=== PATIENT | male | born 1950 | race Caucasian/White ===

== ENCOUNTER → 2018-04-30 08:58 | Outpatient (CLI) | payer OTHER, SELFPAY ==
--- NOTE | 2018-04-30 | DI.CT.S_ITS ---
PROCEDURE: CT SINUS SCREEN WO CON INDICATIONS: RIGHT NASAL OBSTRUCTION TECHNIQUE: Noncontrast 3.0 mm axial images acquired from the frontal sinuses to the mid-sella, with coronal and sagittal reformats. For radiation dose reduction, the following was used: automated exposure control, adjustment of mA and/or kV according to patient size. COMPARISON: None. FINDINGS: Image quality: Excellent. Maxillary Sinuses: No bony remodeling or destruction. Sinuses are clear. Ethmoid Air Cells: No bony remodeling or destruction. Sinuses are clear. Sphenoid Sinuses: No bony remodeling or destruction. Sinuses are clear. Frontal Sinuses: No bony remodeling or destruction. Sinuses are clear. Ostiomeatal Complexes: Ostiomeatal complexes are patent. No Adam cells. Miscellaneous: Visualized intra-orbital contents are normal. No janee bullosa or paradoxical turbinate curvature. There is moderate leftward nasal septal deviation. IMPRESSION: No significant active paranasal sinus disease is seen. Moderate leftward nasal septal deviation. Dictated by: Aftab Fitch M.D. on 04/30/2018 at 8:48 Approved by: Aftab Fitch M.D. on 04/30/2018 at 8:49
== END ==
PROVIDERS: PCP Nurse Practitioner; Visit Provider Otolaryngology
DX: J32.8 Other chronic sinusitis (principal)
CPT/HCPCS: 70486; Q9967

== ENCOUNTER → 2020-03-30 11:56 | Outpatient (CLI) | payer OTHER, SELFPAY ==
[2020-03-30 13:24] LABS: Add Manual Diff / Slide Review NO; Basophils Absolute Auto 0 /uL (0-100); Basophils Percent Auto 0.5 % (0-2); Eosinophils Absolute Auto 0 /uL (0-450); Eosinophils Percent Auto 0.4 % (2-4); Hematocrit 40.2 % (41-53); Lymphocytes Absolute Auto 1100 /uL (1100-4500); Lymphocytes Percent Auto 27.1 % (25-40); Mean Corpuscular HGB Conc 34.8 % (30-36); Mean Corpuscular Hemoglobin 33.5 PG (26-34); Mean Corpuscular Volume 96.3 fL (80-100); Monocytes Absolute Auto 400 /uL (0-900); Monocytes Percent Auto 9.6 % (3-14); Neutrophils Absolute Auto 2500 /uL (1500-7000); Neutrophils Percent Auto 62.4 % (50-75); Platelet Count 152 X10^3/uL (150-400); Red Blood Cell Count 4.17 X10^6/uL (4.5-5.9); Red Cell Distribution Width 12.8 % (11.6-14.8)
[2020-03-30 13:51] LABS: Alanine Aminotransferase 40 IU/L (<50); Albumin 4.8 g/dL (3.5-5.0); Albumin Globulin Ratio 1.5 (1.0-2.8); Alkaline Phosphatase 48 U/L (38-126); Aspartate Aminotransferase 47 IU/L (17-59); BUN Creatinine Ratio 12.7 (6-22); Bilirubin Total 1.7 mg/dL (0.2-1.3); Blood Urea Nitrogen 10 mg/dL (9-20); Calcium 9.8 mg/dL (8.4-10.2); Carbon Dioxide 29 mmol/L (22-32); Chloride 89 mmol/L (98-107); Estimated Glomerular Filt Rate > 60.0 mL/min (>60); Globulin 3.2 g/dL (1.7-4.1); Glucose 93 mg/dL (80-110); HEMOLYSIS < 15 (0-50); Potassium 4.3 mmol/L (3.4-5.1); Sodium 127 mmol/L (137-145); Uric Acid 2.6 mg/dL (3.5-8.5)
[2020-03-30 13:54] LABS: Erythrocyte Sedimentation Rate 4 MM/HR (0-15)
[2020-03-30 13:55] LABS: High Sensitivity CRP - Cardiac 0.6 mg/L (1.0-3.0)
== END ==
PROVIDERS: PCP Family Medicine; Referring Provider Ophthalmology; Visit Provider Ophthalmology
DX: H53.122 Transient visual loss, left eye (principal)
CPT/HCPCS: 36415; 80053; 84550; 85025; 85651; 86140

== ENCOUNTER 2021-06-28 12:28 | Emergency (ER) | payer MEDICARE, SELFPAY ==
[2021-06-28 12:40] VITALS: BP 159/78; PULSE 53; RESP 16; TEMP 36.6; O2SAT 97; BMI 27.4
--- NOTE | 2021-06-28 12:46 | DI.RAD.S_ITS ---
PROCEDURE: XR CHEST 2V INDICATIONS: shortness of breath TECHNIQUE: 2 views of the chest were acquired. COMPARISON: [facility], CHEST 2 VIEW, 01/25/2017, 16:11. [facility] Put[facility], CHEST 2 VIEW, 12/30/2015, 12:08. FINDINGS: Surgical changes and devices: None. Lungs and pleura: Lungs are clear. No pleural effusions or pneumothorax. Mediastinum: Mediastinal contours are not significantly changed. Asymmetric elevation of the left hemidiaphragm. Heart size is within normal limits. Bones and chest wall: No suspicious bony abnormalities. Soft tissues appear unremarkable. IMPRESSION: Suspect pulmonary vasculature engorgement. Dictated by: Kiel Payne M.D. on 06/28/2021 at 13:34 Approved by: Kiel Payne M.D. on 06/28/2021 at 13:35
--- NOTE | 2021-06-28 13:17 | ED.GENADULT ---
HPI - General Adult General Chief complaint: Shortness of Breath/Dyspnea Stated complaint: Sent by [facility] for respitory issues Time Seen by Provider: 06/28/21 12:57 Source: patient Mode of arrival: Ambulatory Limitations: no limitations History of Present Illness HPI narrative: Patient is a 70-year-old male. History of high blood pressure. Takes medications for this. No prior lung history. Does not see a ophthalmic surgeon. Here for evaluation of 2-3 days of shortness of breath especially dyspnea on exertion. He states that he occasionally feels like his heart is beating fast otherwise no chest discomfort. Did have subjective fevers last evening. No cough. No recent travel. No lower extremity swelling. Saw his primary doctor who advised that he come to the emergency department for further evaluation. Related Data Home Medications Medication Instructions Recorded Confirmed OMEGA-3 FATTY ACIDS (FISH OIL) 500 mg PO Q DAY #0 06/15/16 11/05/18 amlodipine 5 mg tablet 5 mg PO BID tab 11/05/18 11/05/18 colchicine 0.6 mg tablet 1.2 mg PO DAILY 11/05/18 11/05/18 irbesartan 150 mg tablet 150 mg PO DAILY 11/05/18 11/05/18 mometasone 50 mcg/actuation nasal 2 spray NASAL DAILY 11/05/18 11/05/18 spray (Nasonex) potassium 99 mg tablet 99 mg PO DAILY 11/05/18 11/05/18 Previous Rx's Medication Instructions Recorded albuterol sulfate 90 mcg/actuation 0.09 mg IH Q4HP PRN #1 inh 09/25/16 aerosol inhaler (Proventil HFA) allopurinol 300 mg tablet 300 mg PO QDAY #90 tab 01/31/17 clonazepam 1 mg tablet 1 mg PO HS #28 tab 02/23/17 hydrochlorothiazide 25 mg tablet 25 mg PO QDAY #90 tab 02/23/17 hydrocodone 5 mg-acetaminophen 325 1 tab PO BID PRN #28 tab 03/26/17 mg tablet ([place]) furosemide 20 mg tablet (Lasix) 20 mg PO DAILY 7 Days #7 tab 06/28/21 Allergies Allergy/AdvReac Type Severity Reaction Status Date / Time atorvastatin [From LIPITOR] AdvReac Intermediate MUSCLE Verified 06/28/21 15:31 CRAMPS AND PAIN Review of Systems Constitutional Constitutional: Reports as per HPI, Reports fever(s) and Denies headache(s) ENT Ears, Nose, Mouth, and Throat: Reports system reviewed and no additional complaints, except as documented and Denies headache(s) Cardiovascular Cardiovascular: Reports as per HPI, Reports system reviewed and no additional complaints, except as documented, Reports dyspnea and Reports dyspnea on exertion Respiratory Respiratory: Reports as per HPI, Reports system reviewed and no additional complaints, except as documented, Denies chest congestion, Denies cough, Denies pain with cough, Reports dyspnea and Reports dyspnea on exertion Gastrointestinal Gastrointestinal: Reports system reviewed and no additional complaints, except as documented, Denies abdominal pain, Denies nausea and Denies vomiting Genitourinary Genitourinary: Denies dysuria Musculoskeletal Musculoskeletal: Reports system reviewed and no additional complaints, except as documented Integumentary/Breasts Skin/Breast: Reports system reviewed and no additional complaints, except as documented Neurologic Neurologic: Reports system reviewed and no additional complaints, except as documented and Denies headache(s) Psychiatric Psychiatric: Reports system reviewed and no additional complaints, except as documented Hematologic/Lymphatic On Anticoagulants: No Allergic/Immunologic Allergic/Immunologic: Reports system reviewed and no additional complaints, except as documented Patient History Medical History (Updated 06/28/21 @ 15:20 by Jarvis Thomson DO) Obstructive sleep apnea of adult Surgical History Status post hernia repair Family History Brother Age: 62 Hypertension Brother Age: 58 Heart disease Brother Age: 60 Hypertension Father Heart disease Grandfather Heart disease Mother Cancer Hypertension Grandfather Heart disease Sister Age: 54 Hypertension High cholesterol Sister Age: 56 High cholesterol Sister Age: 56 High cholesterol Mental health problem Sister Age: 67 Mental health problem Social History Smoking Status: Former smoker Smoking Status: Former smoker alcohol intake frequency: holidays/special occasions only Substance Use Type: does not use Exam Initial Vital Signs Initial Vital Signs: Vital Signs Temperature 97.9 F 06/28/21 12:40 Pulse Rate 53 L 06/28/21 12:40 Respiratory Rate 16 06/28/21 12:40 Blood Pressure 159/78 H 06/28/21 12:40 Pulse Oximetry 97 06/28/21 12:40 Const General: cooperative, healthy appearing, comfortable, well developed, well groomed and No acute distress Limitations: mental status not altered HENHI Head: normal to inspection and normocephalic Eyes General: appearance normal, both eyes and all related structures Resp Effort & Inspection: not labored and tachypneic Auscultation: clear to auscultation bilaterally Cardio Rate: regular rate Rhythm: regular rhythm Other: Bigeminy pattern GI Inspection: non-distended Palpation: soft Back/Spine/Pelvis Back: normal to inspection and back tenderness Skin Lesions: no lesions Rashes: no rashes Neuro General: patient alert, patient awake, patient oriented x3 and moves all extremities Extrem General: normal to inspection and capillary refill normal Psych Appearance: grossly normal and well kempt Course Orders Ordered: ED Orders 06/28/21 12:46 XR chest 2V Stat EKG-12 Lead Stat Measure peak expiratory flow ONCE RT Consult Eval and Treat Now 06/28/21 13:14 Complete Blood Count AUTO DIFF Stat Comprehensive Metabolic Panel Stat Lactate (Lactic Acid) Stat Magnesium Stat NT-proBNP (BNP-Adult 18+) Stat Troponin & CK Cardiac Panel Stat 06/28/21 13:29 COVID19 -Nasal swab/Pre-Proc Stat 06/28/21 13:55 CT angio chest PE protocol Stat Discontinued Medications Furosemide (Furosemide 100 Mg/10 Ml Vial) 60 mg IV NOW ONE Stop: 06/28/21 15:19 Last Admin: 06/28/21 15:51 Dose: 60 mg Documented by: LUIS Vital Signs Vital signs: Vital Signs - 8 hr 06/28/21 12:40 Temperature 97.9 F Pulse Rate 53 L Respiratory Rate 16 Blood Pressure 159/78 H Pulse Oximetry 97 Medical Decision Making Lab Data Lab results reviewed: Yes I reviewed the patient's lab results. Result diagrams: 06/28/21 13:14 06/28/21 13:14 Labs: Lab Results 06/28/21 06/28/21 06/28/21 Range/Units 13:14 13:14 13:14 WBC 12.6 H (4.5-11.0) X10^3/uL RBC 3.48 L (4.5-5.9) X10^6/uL Hgb 11.6 L (13.5-17.5) g/dL Hct 32.5 L (41-53) % MCV 93.3 (80-100) fL MCH 33.3 (26-34) PG MCHC 35.7 (30-36) % RDW 12.6 (11.6-14.8) % Plt Count 193 (150-400) X10^3/uL Neut % (Auto) 89.4 H (50-75) % Lymph % (Auto) 3.8 L (25-40) % Cowley % (Auto) 6.5 (3-14) % Eos % (Auto) 0.0 L (2-4) % Baso % (Auto) 0.3 (0-2) % Neut # (Auto) 41890 H (3711-6431) /uL Lymph # (Auto) 500 L (8446-1639) /uL Cowley # (Auto) 800 (0-900) /uL Eos # (Auto) 0 (0-450) /uL Baso # (Auto) 0 (0-100) /uL Sodium 123 L (137-145) mmol/L Potassium 3.9 (3.4-5.1) mmol/L Chloride 89 L (98-107) mmol/L Carbon Dioxide 25 (22-32) mmol/L BUN 12 (9-20) mg/dL Creatinine 0.98 (0.66-1.25) mg/dL Estimated GFR > 60.0 (>60) mL/min BUN/Creatinine Ratio 12.2 (6-22) Glucose 124 H (80-110) mg/dL Lactate 1.1 (0.7-2.1) mmol/L Calcium 9.3 (8.4-10.2) mg/dL Magnesium (1.6-2.3) mg/dL Total Bilirubin 2.3 H (0.2-1.3) mg/dL AST 39 (17-59) IU/L ALT 21 (<50) IU/L Alkaline Phosphatase 48 (38-126) U/L Total Creatine Kinase (55-170) U/L CK-MB (CK-2) (<2.37) ng/mL CK-MB (CK-2) Rel Index (1.5-5.0) % Troponin I (0.01-0.034) ng/mL NT-Pro-B Natriuret Pep 1130 H (<125) pg/mL Total Protein 7.6 (6.3-8.2) g/dL Albumin 4.3 (3.5-5.0) g/dL Globulin 3.3 (1.7-4.1) g/dL Albumin/Globulin Ratio 1.3 (1.0-2.8) SARS-CoV-2 (PCR) (Negative) 06/28/21 06/28/21 06/28/21 Range/Units 13:14 13:14 13:29 WBC (4.5-11.0) X10^3/uL RBC (4.5-5.9) X10^6/uL Hgb (13.5-17.5) g/dL Hct (41-53) % MCV (80-100) fL MCH (26-34) PG MCHC (30-36) % RDW (11.6-14.8) % Plt Count (150-400) X10^3/uL Neut % (Auto) (50-75) % Lymph % (Auto) (25-40) % Cowley % (Auto) (3-14) % Eos % (Auto) (2-4) % Baso % (Auto) (0-2) % Neut # (Auto) (7023-3585) /uL Lymph # (Auto) (7823-0113) /uL Cowley # (Auto) (0-900) /uL Eos # (Auto) (0-450) /uL Baso # (Auto) (0-100) /uL Sodium (137-145) mmol/L Potassium (3.4-5.1) mmol/L Chloride (98-107) mmol/L Carbon Dioxide (22-32) mmol/L BUN (9-20) mg/dL Creatinine (0.66-1.25) mg/dL Estimated GFR (>60) mL/min BUN/Creatinine Ratio (6-22) Glucose (80-110) mg/dL Lactate (0.7-2.1) mmol/L Calcium (8.4-10.2) mg/dL Magnesium 1.8 (1.6-2.3) mg/dL Total Bilirubin (0.2-1.3) mg/dL AST (17-59) IU/L ALT (<50) IU/L Alkaline Phosphatase (38-126) U/L Total Creatine Kinase 236 H (55-170) U/L CK-MB (CK-2) 2.75 H (<2.37) ng/mL CK-MB (CK-2) Rel Index 1.2 L (1.5-5.0) % Troponin I 0.012 (0.01-0.034) ng/mL NT-Pro-B Natriuret Pep (<125) pg/mL Total Protein (6.3-8.2) g/dL Albumin (3.5-5.0) g/dL Globulin (1.7-4.1) g/dL Albumin/Globulin Ratio (1.0-2.8) SARS-CoV-2 (PCR) Negative (Negative) 06/28/21 Range/Units 14:33 WBC (4.5-11.0) X10^3/uL RBC (4.5-5.9) X10^6/uL Hgb (13.5-17.5) g/dL Hct (41-53) % MCV (80-100) fL MCH (26-34) PG MCHC (30-36) % RDW (11.6-14.8) % Plt Count (150-400) X10^3/uL Neut % (Auto) (50-75) % Lymph % (Auto) (25-40) % Cowley % (Auto) (3-14) % Eos % (Auto) (2-4) % Baso % (Auto) (0-2) % Neut # (Auto) (1466-7962) /uL Lymph # (Auto) (0253-9164) /uL Cowley # (Auto) (0-900) /uL Eos # (Auto) (0-450) /uL Baso # (Auto) (0-100) /uL Sodium (137-145) mmol/L Potassium (3.4-5.1) mmol/L Chloride (98-107) mmol/L Carbon Dioxide (22-32) mmol/L BUN (9-20) mg/dL Creatinine (0.66-1.25) mg/dL Estimated GFR (>60) mL/min BUN/Creatinine Ratio (6-22) Glucose (80-110) mg/dL Lactate (0.7-2.1) mmol/L Calcium (8.4-10.2) mg/dL Magnesium (1.6-2.3) mg/dL Total Bilirubin (0.2-1.3) mg/dL AST (17-59) IU/L ALT (<50) IU/L Alkaline Phosphatase (38-126) U/L Total Creatine Kinase (55-170) U/L CK-MB (CK-2) (<2.37) ng/mL CK-MB (CK-2) Rel Index (1.5-5.0) % Troponin I (0.01-0.034) ng/mL NT-Pro-B Natriuret Pep (<125) pg/mL Total Protein (6.3-8.2) g/dL Albumin (3.5-5.0) g/dL Globulin (1.7-4.1) g/dL Albumin/Globulin Ratio (1.0-2.8) SARS-CoV-2 (PCR) Cancelled (Negative) Imaging Data Chest x-ray: Radiologist's Impression: [address] [address] XRay Report Signed Patient: Moose Blanco MR#: [id number] : 1950 Acct:[id number] Age/Sex: 70 / M Date of Service: 06/28/21 Loc: ED Accession Number: [id number] ?? Procedure: XR chest 2V Ordering Provider: Jarvis Thomson D.O. PROCEDURE:? XR CHEST 2V ? INDICATIONS:? shortness of breath ? TECHNIQUE:? 2 views of the chest were acquired.? ? COMPARISON:? [facility] Putnam, CHEST 2 VIEW, 01/25/2017, 16:11.? [facility]IE Putnam, CHEST 2 VIEW, 12/30/2015, 12:08. ? FINDINGS:? ? Surgical changes and devices:? None.? ? Lungs and pleura:? Lungs are clear.? No pleural effusions or pneumothorax.? ? Mediastinum:? Mediastinal contours are not significantly changed.? Asymmetric elevation of the left hemidiaphragm.? Heart size is within normal limits.? ? Bones and chest wall:? No suspicious bony abnormalities.? Soft tissues appear unremarkable.? ? IMPRESSION:? Suspect pulmonary vasculature engorgement. ? ? Dictated by: Kiel Payne M.D. on 06/28/2021 at 13:34 ? ? Approved by: Kiel Payne M.D. on 06/28/2021 at 13:35?? CT scan - chest: Radiologist's Impression: [address] [address] [address] Scan Report Signed Patient: Moose Blanco MR#: [id number] : 1950 Acct:[id number] Age/Sex: 70 / M Date of Service: 06/28/21 Loc: ED Accession Number: [id number] ?? Procedure: CT angio chest PE protocol Ordering Provider: Jarvis Thomson D.O. PROCEDURE:? CT ANGIO CHEST PE PROTOCOL ? INDICATIONS:? Chest pain, shortness of breath, tachycardia ? TECHNIQUE:? After the administration of intravenous contrast, 2 mm thick sections acquired from the pulmonary apices to the posterior costophrenic angles.? 3-dimensional maximum intensity projection (MIP) coronal and sagittal reformats were then acquired through the thorax.? For radiation dose reduction, the following was used:? automated exposure control, adjustment of mA and/or kV according to patient size.? ? COMPARISON:? [facility], CR, CHEST 2 VIEW, 01/25/2017, 16:11.? [facility], CR, XR CHEST 2V, 06/28/2021, 12:50. ? FINDINGS:? Image quality:? Good.? ? Pulmonary arteries:? Pulmonary arteries are normal in size, and demonstrate no intraluminal filling defects to suggest pulmonary embolism.? ? Lungs and pleura:? Bilateral patchy ground-glass airspace opacity, moderate severity.? Left lung base pulmonary nodule measuring 0.5 cm, (5/190).? No pleural effusions or pneumothorax.? Central airways are clear.? ? Mediastinum:? Heart size is normal, without pericardial effusion.? Coronary artery calcifications.? Shotty appearing mediastinal lymph nodes.? Suspect reactive etiology.? Thoracic aorta is normal in caliber and enhancement.? Esophagus is normal in caliber, without hiatal hernia.? ? Bones and chest wall:? No suspicious bony lesions.? Mild degenerative change in the thoracic spine.? Ribs and thoracic spine appear intact throughout.? Thyroid gland is unremarkable.? No axillary or supraclavicular adenopathy.? ? Abdomen:? Visualized upper abdominal solid organs appear normal in the early arterial phase of enhancement.? ? IMPRESSION:? 1. No pulmonary embolism. ? 2. Bilateral patchy ground-glass airspace opacity.? Suspect infectious/inflammatory etiology.? COVID-19 pneumonia could have this appearance. ? 3. Left lung base pulmonary nodule measuring 0.5 cm. ? 4. Shotty mediastinal lymph nodes.? Favor reactive etiology. ? ? ? Dictated by: Kiel Payne M.D. on 06/28/2021 at 14:01 ? ? Approved by: Kiel Payne M.D. on 06/28/2021 at 14:09?? ECG Data Attestation: I personally reviewed and interpreted this ECG as follows: Prior ECG tracings: not available for review Interpretation: Sinus rhythm Ventricular rate 106 Bigeminy pattern with frequent PVCs Normal QRS Normal QTC Nonspecific ST T wave changes MDM Narrative Medical decision making narrative: Patient is having frequent episodes of bigeminy. His troponin is negative. Other than the bigeminy his EKG is nonspecific changes. Patient does have a slight elevation in BNP. Has a leukocytosis but I have low suspicion for pneumonia. His COVID is negative. CT scan more consistent with fluid overload. Plan will be is to start the patient on Lasix. He will contact his primary doctor to discuss further workup to include an echocardiogram and potentially pulmonary function tests or other specialist referral. Patient was given return precautions and follow-up instructions. He expressed understanding and agreement. Discharge Plan Departure Patient Disposition: Home Clinical Impression: Shortness of Breath Instructions: DI for Shortness of Breath Activity Restrictions/Additional Instructions: I do recommend you continue to take all of your medications as directed. I feel that we should start you on a medication to help you urinate. This will try to mobilize some of the fluid that may be causing your symptoms. If this does not help your symptoms you do need further workup to include potential pulmonary function test. This can be ordered by your primary doctor. Return to the emergency department for any new or worsening symptoms. Prescriptions: New furosemide [Lasix] 20 mg tablet 20 mg PO DAILY 7 Days Qty: 7 0RF No Action OMEGA-3 FATTY ACIDS (FISH OIL) 500 mg PO Q DAY Qty: 0 0RF albuterol sulfate [Proventil HFA] 90 MCG/PUFF HFA aerosol inhaler 0.09 mg IH Q4HP PRNQty: 1 1RF allopurinol 300 MG tablet 300 mg PO QDAY Qty: 90 0RF clonazepam 1 MG tablet 1 mg PO HS Qty: 28 0RF hydrochlorothiazide 25 MG tablet 25 mg PO QDAY Qty: 90 1RF hydrocodone-acetaminophen [[place]] 5 MG/325 MG tablet 1 tab PO BID PRNQty: 28 0RF amlodipine 5 mg tablet 5 mg PO BID 0RF colchicine 0.6 mg tablet 1.2 mg PO DAILY 0RF irbesartan 150 mg tablet 150 mg PO DAILY 0RF mometasone [Nasonex] 50 mcg/actuation spray,non-aerosol 2 spray NASAL DAILY 0RF potassium 99 mg tablet 99 mg PO DAILY 0RF Referrals: Kalia Hunt MD [Primary Care Provider] -
[2021-06-28 13:27] LABS: Add Manual Diff / Slide Review NO; Basophils Absolute Auto 0 /uL (0-100); Basophils Percent Auto 0.3 % (0-2); Eosinophils Absolute Auto 0 /uL (0-450); Hematocrit 32.5 % (41-53); Hemoglobin 11.6 g/dL (13.5-17.5); Lymphocytes Absolute Auto 500 /uL (1100-4500); Lymphocytes Percent Auto 3.8 % (25-40); Mean Corpuscular HGB Conc 35.7 % (30-36); Mean Corpuscular Hemoglobin 33.3 PG (26-34); Mean Corpuscular Volume 93.3 fL (80-100); Monocytes Absolute Auto 800 /uL (0-900); Monocytes Percent Auto 6.5 % (3-14); Neutrophils Absolute Auto 11200 /uL (1500-7000); Neutrophils Percent Auto 89.4 % (50-75); Platelet Count 193 X10^3/uL (150-400); Red Blood Cell Count 3.48 X10^6/uL (4.5-5.9); Red Cell Distribution Width 12.6 % (11.6-14.8); White Blood Cell Count 12.6 X10^3/uL (4.5-11.0)
[2021-06-28 13:38] LABS: Alanine Aminotransferase 21 IU/L (<50); Albumin 4.3 g/dL (3.5-5.0); Albumin Globulin Ratio 1.3 (1.0-2.8); Alkaline Phosphatase 48 U/L (38-126); Aspartate Aminotransferase 39 IU/L (17-59); BUN Creatinine Ratio 12.2 (6-22); Bilirubin Total 2.3 mg/dL (0.2-1.3); Blood Urea Nitrogen 12 mg/dL (9-20); Calcium 9.3 mg/dL (8.4-10.2); Carbon Dioxide 25 mmol/L (22-32); Chloride 89 mmol/L (98-107); Estimated Glomerular Filt Rate > 60.0 mL/min (>60); Globulin 3.3 g/dL (1.7-4.1); Glucose 124 mg/dL (80-110); HEMOLYSIS 28 (0-50); Potassium 3.9 mmol/L (3.4-5.1); Sodium 123 mmol/L (137-145); Total Protein 7.6 g/dL (6.3-8.2)
[2021-06-28 13:39] LABS: Lactate (Lactic Acid) 1.1 mmol/L (0.7-2.1); Magnesium 1.8 mg/dL (1.6-2.3)
[2021-06-28 13:42] LABS: COVID19 -Nasal RAPID Negative (Negative)
[2021-06-28 13:47] LABS: NT-proBNP (BNP-Adult 18+) 1130 pg/mL (<125)
--- NOTE | 2021-06-28 13:55 | DI.CT.S_ITS ---
PROCEDURE: CT ANGIO CHEST PE PROTOCOL INDICATIONS: Chest pain, shortness of breath, tachycardia TECHNIQUE: After the administration of intravenous contrast, 2 mm thick sections acquired from the pulmonary apices to the posterior costophrenic angles. 3-dimensional maximum intensity projection (MIP) coronal and sagittal reformats were then acquired through the thorax. For radiation dose reduction, the following was used: automated exposure control, adjustment of mA and/or kV according to patient size. COMPARISON: [facility], CR, CHEST 2 VIEW, 01/25/2017, 16:11. [facility], CR, XR CHEST 2V, 06/28/2021, 12:50. FINDINGS: Image quality: Good. Pulmonary arteries: Pulmonary arteries are normal in size, and demonstrate no intraluminal filling defects to suggest pulmonary embolism. Lungs and pleura: Bilateral patchy ground-glass airspace opacity, moderate severity. Left lung base pulmonary nodule measuring 0.5 cm, (5/190). No pleural effusions or pneumothorax. Central airways are clear. Mediastinum: Heart size is normal, without pericardial effusion. Coronary artery calcifications. Shotty appearing mediastinal lymph nodes. Suspect reactive etiology. Thoracic aorta is normal in caliber and enhancement. Esophagus is normal in caliber, without hiatal hernia. Bones and chest wall: No suspicious bony lesions. Mild degenerative change in the thoracic spine. Ribs and thoracic spine appear intact throughout. Thyroid gland is unremarkable. No axillary or supraclavicular adenopathy. Abdomen: Visualized upper abdominal solid organs appear normal in the early arterial phase of enhancement. IMPRESSION: 1. No pulmonary embolism. 2. Bilateral patchy ground-glass airspace opacity. Suspect infectious/inflammatory etiology. COVID-19 pneumonia could have this appearance. 3. Left lung base pulmonary nodule measuring 0.5 cm. 4. Shotty mediastinal lymph nodes. Favor reactive etiology. Dictated by: Kiel Payne M.D. on 06/28/2021 at 14:01 Approved by: Kiel Payne M.D. on 06/28/2021 at 14:09
[2021-06-28 15:48] LABS: Creatine Kinase 236 U/L (55-170)
[2021-06-28] MEDS: FUROSEMIDE 100 MG/10 ML VIAL 60 MG IV (15:51)
[2021-06-28 16:01] LABS: Troponin I 0.012 ng/mL (0.01-0.034)
[2021-06-28 16:04] LABS: CKMB % Relative Index 1.2 % (1.5-5.0); Creatine Kinase MB 2.75 ng/mL (<2.37)
== END 2021-06-28 15:50 | disposition home or self-care (01) ==
PROVIDERS: Emergency Provider Emergency Medicine; PCP Family Medicine
DX: R06.02 Shortness of breath (principal); Z87.891 Personal history of nicotine dependence; Z20.822 Contact with and (suspected) exposure to COVID-19
CPT/HCPCS: 36415; 71046; 71275; 80053; 82550; 82553; 83605; 83735; 83880; 84484; 85025; 87635; 93005; 93010; 99284; C9803; J1940

== ENCOUNTER → 2021-07-22 08:19 | Outpatient (CLI) | payer MEDICARE, SELFPAY ==
--- NOTE | 2021-07-22 08:20 | DI.ECHO.S_ITS ---
[facility] +---------+ : : [address] [place] : : : : [id number] : : : : Phone: [phone] Echocardiogram Report + + :Name: АННА WILSON Study Date: 07/22/2021 Height: 74 in : :[facility] ReadingLocation: Weight: 214 lb : : Gender: Male BSA: 2.2 m2 : :: 1950 Age: 70 yrs BP: 134/72 mmHg: :Reason For Study: Heart failure : :Ordering Physician: Dr. Motta : :[facility] Performed By: Chirag Longoria : :Referring: ANA M RUFF : + + Interpretation Summary Significant beat - to - beat variation of EF Left ventricular ejection fraction is estimated to be 55 +/- 5%. No obvious wall motion abnormality. Dyssynchronous contraction is noted primarily I feel because of frequent PVCs The aortic valve is mildly calcified. There is mildly reduced leaflet mobility. There is mild tricuspid regurgitation. The right ventricular systolic pressure is estimated to be at least 24 mmHg based on an estimated right atrial pressure of 3 mm Hg. Procedure: A two-dimensional transthoracic echocardiogram with color flow and Doppler was performed. The study quality was technically adequate. There is no prior echocardiogram noted for this patient. The heart rate ranged between 99 - 106 bpm during the study. Left Ventricle: The left ventricle is normal in size and wall thickness. There is borderline proximal septal thickening noted. Significant beat - to - beat variation of EF. Left ventricular ejection fraction is estimated to be 55 +/- 5%. No obvious wall motion abnormality. Dyssynchronous contraction is noted primarily I feel because of frequent PVCs. Diastolic function could not be accurately assessed due to unobtainable data. Right Ventricle: The right ventricle is normal in size and function. Atria: The left atrium is moderately dilated. The right atrium is borderline dilated. There is no Doppler evidence for an interatrial shunt. The atrial septum is aneurysmal. Mitral Valve: There is mild mitral annular calcification. There is trace mitral regurgitation. Aortic Valve: The aortic valve is trileaflet. The aortic valve is mildly calcified. There is mildly reduced leaflet mobility. The peak aortic velocity is 2.3 m/sec. The aortic valve mean gradient is 13.7 mmHg. There is trace aortic regurgitation. Tricuspid Valve: The tricuspid valve is normal. There is mild tricuspid regurgitation. The right ventricular systolic pressure is estimated to be at least 24 mmHg based on an estimated right atrial pressure of 3 mm Hg. Pulmonic Valve: The pulmonic valve leaflets are thin and pliable; valve motion is normal. There is trace pulmonic regurgitation. Great Vessels: The aortic root is borderline dilated. The ascending aorta is mildly enlarged. The aortic arch is normal in size. The IVC is of normal diameter and collapses greater than 50% with a sniff. This suggests a low right atrial pressure of 3 mm Hg. Pericardium/ Pleura There is no pericardial effusion. There is an anterior echo-free space consistent with a fat pad. There is no pleural effusion. MMode/2D Measurements & Calculations LVIDd: 4.3 cm LVOT diam: 2.5 cm LVIDs: 2.9 cm Ao root diam: 3.9 cm FS: 32.9 % asc Aorta Diam: 4.1 cm IVSd: 1.2 cm Ao Arch Diam (Prox Trans): 2.7 cm LVPWd: 1.1 cm LV murillo. diameter/BSA (cm/m^2): 1.9 LV sys. diameter/BSA (cm/m^2): 1.3 LA A2 area: 26.4 cm2 RA long axis: 5.9 cm LA A4 area: 24.4 cm2 RA area: 18.6 cm2 LA length (vol): 5.8 cm RA vol: 49.6 ml LA vol: 94.0 ml RA : 22.2 ml/m2 LA vol index: 42.0 ml/m2 IVC diam: 2.2 cm TAPSE: 1.9 cm Doppler Measurements & Calculations Ao V2 max: 229.5 cm/sec LVOT Max Guillermo: 137.8 cm/sec Ao V2 mean: 178.9 cm/sec LV V1 max P.6 mmHg Ao max P.1 mmHg LV V1 VTI: 25.6 cm Ao mean P.7 mmHg JAIRO(I,D): 2.9 cm2 Ao V2 VTI: 45.4 cm JAIRO(V,D): 3.1 cm2 sev ratio: 0.56 JAIRO indexed to BSA (cm^2/m^2): 1.3 MV E max guillermo: 68.6 cm/sec TR max guillermo: 227.3 cm/sec MV A max guillermo: 70.4 cm/sec TR max P.8 mmHg MV E/A: 0.98 PA V2 max: 95.8 cm/sec Med Peak E' Guillermo: 8.6 cm/sec PA V2 mean: 78.6 cm/sec E/E' med: 8.0 PA mean P.6 mmHg Lat Peak E' Guillermo: 16.0 cm/sec PA pr(Accel): 55.0 mmHg E/E' lat: 4.3 E/e' average: 6.1 MV dec time: 0.17 sec SV(LVOT): 130.2 ml Reading Physician:11:14 AM
== END ==
PROVIDERS: PCP Family Medicine; Referring Provider Family Medicine; Visit Provider Family Medicine
DX: I07.1 Rheumatic tricuspid insufficiency (principal); I50.9 Heart failure, unspecified
CPT/HCPCS: 93306

== ENCOUNTER 2021-07-22 08:54 | Emergency (ER) | payer MEDICARE, SELFPAY ==
[2021-07-22] VITALS (19 sets, daily range): BP systolic 122–162; BP diastolic 65–85; PULSE 44–144; RESP 17–36; TEMP 36.2; O2SAT 94–97; BMI 28.5
--- NOTE | 2021-07-22 09:25 | DI.RAD.S_ITS ---
PROCEDURE: XR CHEST 1V INDICATIONS: CHF TECHNIQUE: One view of the chest was acquired. COMPARISON: [facility], CR, XR CHEST 2V, 06/28/2021, 12:50. FINDINGS: Surgical changes and devices: None. Lungs and pleura: Stable elevation of the left hemidiaphragm is seen with atelectasis or scarring at the left lung base. Lungs are otherwise clear. No pleural effusions or pneumothorax. Mediastinum: Mediastinal contours appear normal. Heart size is normal. Bones and chest wall: No suspicious bony lesions. Overlying soft tissues appear unremarkable. IMPRESSION: No acute cardiopulmonary abnormality. Dictated by: Jose Clifford M.D. on 07/22/2021 at 10:07 Approved by: Jose Clifford M.D. on 07/22/2021 at 10:08
[2021-07-22 09:38] LABS: Add Manual Diff / Slide Review NO; Basophils Absolute Auto 0 /uL (0-100); Basophils Percent Auto 0.7 % (0-2); Eosinophils Absolute Auto 100 /uL (0-450); Eosinophils Percent Auto 2.3 % (2-4); Hematocrit 34.4 % (41-53); Hemoglobin 12.4 g/dL (13.5-17.5); Lymphocytes Absolute Auto 1100 /uL (1100-4500); Lymphocytes Percent Auto 24.2 % (25-40); Mean Corpuscular HGB Conc 36.1 % (30-36); Mean Corpuscular Hemoglobin 33.4 PG (26-34); Mean Corpuscular Volume 92.5 fL (80-100); Monocytes Absolute Auto 500 /uL (0-900); Monocytes Percent Auto 11.9 % (3-14); Neutrophils Absolute Auto 2800 /uL (1500-7000); Neutrophils Percent Auto 60.9 % (50-75); Platelet Count 155 X10^3/uL (150-400); Red Blood Cell Count 3.72 X10^6/uL (4.5-5.9); Red Cell Distribution Width 13.3 % (11.6-14.8); White Blood Cell Count 4.6 X10^3/uL (4.5-11.0)
[2021-07-22 09:45] LABS: Alanine Aminotransferase 18 IU/L (<50); Albumin 3.9 g/dL (3.5-5.0); Albumin Globulin Ratio 1.1 (1.0-2.8); Alkaline Phosphatase 53 U/L (38-126); Aspartate Aminotransferase 31 IU/L (17-59); BUN Creatinine Ratio 13.8 (6-22); Bilirubin Total 1.4 mg/dL (0.2-1.3); Blood Urea Nitrogen 12 mg/dL (9-20); Calcium 9.1 mg/dL (8.4-10.2); Carbon Dioxide 27 mmol/L (22-32); Chloride 99 mmol/L (98-107); Creatine Kinase 189 U/L (55-170); Estimated Glomerular Filt Rate > 60.0 mL/min (>60); Globulin 3.5 g/dL (1.7-4.1); Glucose 109 mg/dL (80-110); HEMOLYSIS < 15 (0-50); Lipase 100 U/L (23-300); Potassium 4.2 mmol/L (3.4-5.1); Sodium 128 mmol/L (137-145); Total Protein 7.4 g/dL (6.3-8.2)
--- NOTE | 2021-07-22 09:48 | ED.SOB ---
HPI - SOB/Dyspnea General Chief Complaint: Shortness of Breath/Dyspnea Stated Complaint: CHF getting worse Time Seen by Provider: 07/22/21 09:15 Source: patient and family Mode of arrival: Wheelchair Limitations: no limitations History of Present Illness HPI Narrative: The patient was evaluated your last month, found to have CHF BNP greater than 1000. He has no prior history of cardiac issues or CHF. He was discharged on HCTZ. He had an echo earlier today, results are not yet known. Yet to see a client services assistant. He continues have notable dyspnea on exertion. He does have dyspnea at rest, nor orthopnea. He does not have chest pain or palpitations with exertion. One of his brothers is with him, adding the history that the patient has 2 brothers with ascending aortic aneurysms. The patient had a chest CTA as part of his evaluation last month, it is noted that the thoracic aorta is normal. in addition to note chest pain, the patient has no back pain. He has no abdominal discomfort. He has no bowel changes, no history of GI bleeding. Related Data Home Medications Medication Instructions Recorded Confirmed OMEGA-3 FATTY ACIDS (FISH OIL) 500 mg PO Q DAY #0 06/15/16 11/05/18 amlodipine 5 mg tablet 5 mg PO BID tab 11/05/18 11/05/18 colchicine 0.6 mg tablet 1.2 mg PO DAILY 11/05/18 11/05/18 irbesartan 150 mg tablet 150 mg PO DAILY 11/05/18 11/05/18 mometasone 50 mcg/actuation nasal 2 spray NASAL DAILY 11/05/18 11/05/18 spray (Nasonex) potassium 99 mg tablet 99 mg PO DAILY 11/05/18 11/05/18 Previous Rx's Medication Instructions Recorded albuterol sulfate 90 mcg/actuation 0.09 mg IH Q4HP PRN #1 inh 09/25/16 aerosol inhaler (Proventil HFA) allopurinol 300 mg tablet 300 mg PO QDAY #90 tab 01/31/17 clonazepam 1 mg tablet 1 mg PO HS #28 tab 02/23/17 hydrochlorothiazide 25 mg tablet 25 mg PO QDAY #90 tab 02/23/17 hydrocodone 5 mg-acetaminophen 325 1 tab PO BID PRN #28 tab 03/26/17 mg tablet (Flat Top) Allergies Allergy/AdvReac Type Severity Reaction Status Date / Time atorvastatin [From LIPITOR] AdvReac Intermediate MUSCLE Verified 06/28/21 15:31 CRAMPS AND PAIN Review of Systems Constitutional Constitutional: Denies body ache(s), Denies chills, Denies fatigue and Denies fever(s) Eyes Eyes: Denies change in vision and Denies irritation ENT Ears, Nose, Mouth, and Throat: Denies vertigo, Denies dizziness and Denies sore throat Cardiovascular Cardiovascular: Denies chest pain, Denies syncope, Denies rapid heart rate, Denies pedal edema and Reports dyspnea Respiratory Respiratory: Reports as per HPI, Denies chest congestion, Reports cough and Reports dyspnea Gastrointestinal Gastrointestinal: Denies melena, Denies hematochezia and Denies change in bowel habits Musculoskeletal Musculoskeletal: Denies arthralgias and Denies back pain Comments: No lower extremity edema. Integumentary/Breasts Skin/Breast: Denies rash Neurologic Neurologic: Denies confusion, Denies vertigo, Denies dizziness and Denies syncope Psychiatric Psychiatric: Denies confusion Endocrine Endocrine: Denies fatigue Hematologic/Lymphatic On Anticoagulants: No Patient History Medical History (Updated 07/22/21 @ 14:09 by Ana M Stein MD) Congestive heart failure Essential hypertension (08/30/15) Obstructive sleep apnea of adult Surgical History Status post hernia repair Family History Brother Age: 62 Hypertension Brother Age: 58 Heart disease Brother Age: 60 Hypertension Father Heart disease Grandfather Heart disease Mother Cancer Hypertension Grandfather Heart disease Sister Age: 54 Hypertension High cholesterol Sister Age: 56 High cholesterol Sister Age: 56 High cholesterol Mental health problem Sister Age: 67 Mental health problem Social History Smoking Status: Former smoker Smoking Status: Former smoker alcohol intake frequency: 0-2 drinks per day Substance Use Type: marijuana Exam Initial Vital Signs Initial Vital Signs: Vital Signs Temperature 97.2 F L 07/22/21 08:55 Pulse Rate 47 L 07/22/21 08:55 Respiratory Rate 20 07/22/21 08:55 Blood Pressure 162/69 H 07/22/21 08:55 Pulse Oximetry 96 07/22/21 08:55 Const General: cooperative, healthy appearing and comfortable [facility] Head: normal to inspection, normocephalic and atraumatic Mouth: oral mucosae normal Throat: posterior oropharynx normal Eyes General: appearance normal, both eyes and all related structures Neck Neck: No JVD Chest Chest: normal inspection of the chest Resp Effort & Inspection: normal respiratory effort Auscultation: rales ( bibasilar) bilaterally at the base Cardio Rate: regular rate Heart Sounds: S1 normal, S2 normal and murmur ( III/ mid systolic. concerning for aortic stenosis.) GI Inspection: normal to inspection Palpation: soft and No tender Auscultation: normal bowel sounds Back/Spine/Pelvis Back: normal to inspection Skin General: no rashes or lesions noted Neuro General: patient alert, patient awake and patient oriented x3 Extrem General: full ROM, no pedal edema and no calf tenderness Psych Appearance: grossly normal Course Course Course Narrative: The patient's echo has been reviewed. Lasix 40 mg IV was given. The patient diuresed 2.5 L. he has been in bigeminy. He is now going in and out of bigeminy/normal sinus rhythm. He feels better. His case was discussed with Dr. Rudolph partner to the patient's client services assistant. The decision is made to not change treatment, simply did expedite cardiology follow-up. Orders Ordered: ED Orders 07/22/21 09:17 BNP [NT-proBNP (BNP-Adult 18+)] Stat Complete Blood Count AUTO DIFF Stat Comprehensive Metabolic Panel Stat D Dimer Stat Lipase Stat Magnesium Stat Troponin & CK Cardiac Panel Stat 07/22/21 09:25 XR chest 1V Stat Discontinued Medications Furosemide (Furosemide 40 Mg/4 Ml Vial) 40 mg IV NOW ONE Stop: 07/22/21 12:23 Last Admin: 07/22/21 12:33 Dose: 40 mg Documented by: EAMON Vital Signs Vital signs: Vital Signs - 8 hr 07/22/21 08:55 07/22/21 09:00 07/22/21 09:04 Temperature 97.2 F L Pulse Rate 47 L 44 L 48 L Respiratory Rate 20 20 Blood Pressure 162/69 H 162/69 H 159/78 H Pulse Oximetry 96 94 96 07/22/21 09:15 07/22/21 09:30 07/22/21 09:31 Temperature Pulse Rate 144 H 90 92 H Respiratory Rate 20 20 Blood Pressure 159/78 H 124/66 Pulse Oximetry 95 94 94 07/22/21 10:00 07/22/21 10:30 07/22/21 11:00 Temperature Pulse Rate 88 90 89 Respiratory Rate 20 20 Blood Pressure 134/68 154/77 H Pulse Oximetry 94 95 96 07/22/21 11:01 Temperature Pulse Rate 91 H Respiratory Rate 20 Blood Pressure 122/65 Pulse Oximetry 95 MDM - SOB/Dyspnea Lab Data Result diagrams: 07/22/21 09:17 07/22/21 09:17 Labs: Lab Results 07/22/21 07/22/21 07/22/21 Range/Units 09:17 09:17 09:17 WBC 4.6 (4.5-11.0) X10^3/uL RBC 3.72 L (4.5-5.9) X10^6/uL Hgb 12.4 L (13.5-17.5) g/dL Hct 34.4 L (41-53) % MCV 92.5 (80-100) fL MCH 33.4 (26-34) PG MCHC 36.1 H (30-36) % RDW 13.3 (11.6-14.8) % Plt Count 155 (150-400) X10^3/uL Neut % (Auto) 60.9 (50-75) % Lymph % (Auto) 24.2 L (25-40) % Dickson % (Auto) 11.9 (3-14) % Eos % (Auto) 2.3 (2-4) % Baso % (Auto) 0.7 (0-2) % Neut # (Auto) 2800 (7168-3315) /uL Lymph # (Auto) 1100 (6785-9704) /uL Dickson # (Auto) 500 (0-900) /uL Eos # (Auto) 100 (0-450) /uL Baso # (Auto) 0 (0-100) /uL D-Dimer 279 H (<230) ng/mL Sodium 128 L (137-145) mmol/L Potassium 4.2 (3.4-5.1) mmol/L Chloride 99 (98-107) mmol/L Carbon Dioxide 27 (22-32) mmol/L BUN 12 (9-20) mg/dL Creatinine 0.87 (0.66-1.25) mg/dL Estimated GFR > 60.0 (>60) mL/min BUN/Creatinine Ratio 13.8 (6-22) Glucose 109 (80-110) mg/dL Calcium 9.1 (8.4-10.2) mg/dL Magnesium (1.6-2.3) mg/dL Total Bilirubin 1.4 H (0.2-1.3) mg/dL AST 31 (17-59) IU/L ALT 18 (<50) IU/L Alkaline Phosphatase 53 (38-126) U/L Total Creatine Kinase 189 H (55-170) U/L CK-MB (CK-2) 4.79 H (<2.37) ng/mL CK-MB (CK-2) Rel Index 2.5 (1.5-5.0) % Troponin I < 0.012 (0.01-0.034) ng/mL NT-Pro-B Natriuret Pep 950 H (<125) pg/mL Total Protein 7.4 (6.3-8.2) g/dL Albumin 3.9 (3.5-5.0) g/dL Globulin 3.5 (1.7-4.1) g/dL Albumin/Globulin Ratio 1.1 (1.0-2.8) Lipase 100 (23-300) U/L 07/22/21 Range/Units 09:17 WBC (4.5-11.0) X10^3/uL RBC (4.5-5.9) X10^6/uL Hgb (13.5-17.5) g/dL Hct (41-53) % MCV (80-100) fL MCH (26-34) PG MCHC (30-36) % RDW (11.6-14.8) % Plt Count (150-400) X10^3/uL Neut % (Auto) (50-75) % Lymph % (Auto) (25-40) % Dickson % (Auto) (3-14) % Eos % (Auto) (2-4) % Baso % (Auto) (0-2) % Neut # (Auto) (4397-1987) /uL Lymph # (Auto) (9477-1525) /uL Dickson # (Auto) (0-900) /uL Eos # (Auto) (0-450) /uL Baso # (Auto) (0-100) /uL D-Dimer (<230) ng/mL Sodium (137-145) mmol/L Potassium (3.4-5.1) mmol/L Chloride (98-107) mmol/L Carbon Dioxide (22-32) mmol/L BUN (9-20) mg/dL Creatinine (0.66-1.25) mg/dL Estimated GFR (>60) mL/min BUN/Creatinine Ratio (6-22) Glucose (80-110) mg/dL Calcium (8.4-10.2) mg/dL Magnesium 1.9 (1.6-2.3) mg/dL Total Bilirubin (0.2-1.3) mg/dL AST (17-59) IU/L ALT (<50) IU/L Alkaline Phosphatase (38-126) U/L Total Creatine Kinase (55-170) U/L CK-MB (CK-2) (<2.37) ng/mL CK-MB (CK-2) Rel Index (1.5-5.0) % Troponin I (0.01-0.034) ng/mL NT-Pro-B Natriuret Pep (<125) pg/mL Total Protein (6.3-8.2) g/dL Albumin (3.5-5.0) g/dL Globulin (1.7-4.1) g/dL Albumin/Globulin Ratio (1.0-2.8) Lipase (23-300) U/L Urine Dip Bedside Urine Glucose Negative Bedside Urine Bilirubin - Negative Bedside Urine Ketone - Negative Urine Specific [place] 1.010 Bedside Urine Occult Blood - Negative Bedside Urine pH 7 Bedside Urine Protein - Negative Bedside Urine Urobilinogen - Negative Bedside Urine Nitrite - Negative Bedside Urine Leukocytes - Negative Esterase Imaging Data Chest x-ray: Radiologist's Impression: No acute findings Echocardiogram: Radiologist's Impression: Patient: Анна Blanco MR#: [id number] : 1950 Acct:[id number] Age/Sex: 70 / M Date of Service: 07/22/21 Loc: ECHO Accession Number: [id number] ?? Procedure: EC echo doppler complete Ordering Provider: Ana M Hunt MD [facility]? +---------+ : ? :? [address] ? : ? : : ? :? [place], [place] ? : ? : : ? :? [id number] ? : ? : : ? : ? Phone: [phone] : ? : [phone]---------[phone]? [phone]? +---------+ ? Echocardiogram Report + + :Name: STEVE АННА Parth? Study Date: 07/22/2021? Height: 74 in? : :Hospital ? ? ReadingLocation:? Weight: 214 lb : : ? Gender: Male? BSA: 2.2 m2? ? : :: 1950 ? Age: 70 yrs ? BP: 134/72 mmHg: :Reason For Study: Heart failure? : :Ordering Physician: Dr. Motta ? : :Gilbert? Performed By: Chirag Longoria ? : :Referring: ANA M HUNT? : + + Interpretation Summary Significant beat - to - beat variation of EF Left ventricular ejection fraction is estimated to be 55 +/- 5%. No obvious wall motion abnormality. Dyssynchronous contraction is noted primarily I feel because of frequent PVCs The aortic valve is mildly calcified. There is mildly reduced leaflet mobility. There is mild tricuspid regurgitation. The right ventricular systolic pressure is estimated to be at least 24 mmHg based on an estimated right atrial pressure of 3 mm Hg. ? Procedure: ? A two-dimensional transthoracic echocardiogram with color flow and Doppler was performed. The study quality was technically adequate. There is no prior echocardiogram noted for this patient. The heart rate ranged between 99 - 106 bpm during the study. Left Ventricle: ? The left ventricle is normal in size and wall thickness. There is borderline proximal septal thickening noted. Significant beat - to - beat variation of EF. Left ventricular ejection fraction is estimated to be 55 +/- 5%. No obvious wall motion abnormality. Dyssynchronous contraction is noted primarily I feel because of frequent PVCs. Diastolic function could not be accurately assessed due to unobtainable data. Right Ventricle: ? The right ventricle is normal in size and function. Atria: ? The left atrium is moderately dilated. The right atrium is borderline dilated. There is no Doppler evidence for an interatrial shunt. The atrial septum is aneurysmal. Mitral Valve: ? There is mild mitral annular calcification. There is trace mitral regurgitation. Aortic Valve: ? The aortic valve is trileaflet. The aortic valve is mildly calcified. There is mildly reduced leaflet mobility. The peak aortic velocity is 2.3 m/sec. The aortic valve mean gradient is 13.7 mmHg. There is trace aortic regurgitation. Tricuspid Valve: ? The tricuspid valve is normal. There is mild tricuspid regurgitation. The right ventricular systolic pressure is estimated to be at least 24 mmHg based on an estimated right atrial pressure of 3 mm Hg. Pulmonic Valve: ? The pulmonic valve leaflets are thin and pliable; valve motion is normal. There is trace pulmonic regurgitation. Great Vessels: ? The aortic root is borderline dilated. The ascending aorta is mildly enlarged. The aortic arch is normal in size. The IVC is of normal diameter and collapses greater than 50% with a sniff. This suggests a low right atrial pressure of 3 mm Hg. Pericardium/ Pleura ? There is no pericardial effusion. There is an anterior echo-free space consistent with a fat pad. There is no pleural effusion. ? MMode/2D Measurements & Calculations LVIDd: 4.3 cm? LVOT diam: 2.5 cm LVIDs: 2.9 cm? Ao root diam: 3.9 cm FS: 32.9 % ? asc Aorta Diam: 4.1 cm IVSd: 1.2 cm ? Ao Arch Diam (Prox Trans): 2.7 cm LVPWd: 1.1 cm LV murillo. diameter/BSA (cm/m^2): 1.9 LV sys. diameter/BSA (cm/m^2): 1.3 ? LA A2 area: 26.4 cm2 ? RA long axis: 5.9 cm LA A4 area: 24.4 cm2 ? RA area: 18.6 cm2 LA length (vol): 5.8 cm? RA vol: 49.6 ml LA vol: 94.0 ml? RA : 22.2 ml/m2 LA vol index: 42.0 ml/m2 ? IVC diam: 2.2 cm ? TAPSE: 1.9 cm ? Doppler Measurements & Calculations Ao V2 max: 229.5 cm/sec? LVOT Max Guillermo: 137.8 cm/sec Ao V2 mean: 178.9 cm/sec ? LV V1 max P.6 mmHg Ao max P.1 mmHg ? LV V1 VTI: 25.6 cm Ao mean P.7 mmHg? JAIRO(I,D): 2.9 cm2 Ao V2 VTI: 45.4 cm ? JAIRO(V,D): 3.1 cm2 ? sev ratio: 0.56 ? JAIRO indexed to BSA (cm^2/m^2): 1.3 ? MV E max guillermo: 68.6 cm/sec? TR max guillermo: 227.3 cm/sec MV A max guillermo: 70.4 cm/sec? TR max P.8 mmHg MV E/A: 0.98 ? PA V2 max: 95.8 cm/sec Med Peak E' Guillermo: 8.6 cm/sec? PA V2 mean: 78.6 cm/sec E/E' med: 8.0? PA mean P.6 mmHg Lat Peak E' Guillermo: 16.0 cm/sec ? ? ? PA pr(Accel): 55.0 mmHg E/E' lat: 4.3 E/e' average: 6.1 MV dec time: 0.17 sec ? SV(LVOT): 130.2 ml ? Reading Physician:11:14 AM ECG Data Attestation: I personally reviewed and interpreted this ECG as follows: ( Bigeminy, ventricular rate 93 beats per minute. No acute ST T wave elevation. No other significant findings.) Discharge Plan Departure Patient Disposition: Home Clinical Impression: Congestive heart failure Instructions: Heart Failure Activity Restrictions/Additional Instructions: Continue the current treatment regimen. I talked with Dr. Rudolph, 1 of the client services assistant at the office for your about to be seen. He has advice is to stay on current medications, their office will try to bump up your appointment sooner than August 03. If you feel you are experiencing significant increasing problems, return to the ER. Prescriptions: No Action OMEGA-3 FATTY ACIDS (FISH OIL) 500 mg PO Q DAY Qty: 0 0RF albuterol sulfate [Proventil HFA] 90 MCG/PUFF HFA aerosol inhaler 0.09 mg IH Q4HP PRNQty: 1 1RF allopurinol 300 MG tablet 300 mg PO QDAY Qty: 90 0RF clonazepam 1 MG tablet 1 mg PO HS Qty: 28 0RF hydrochlorothiazide 25 MG tablet 25 mg PO QDAY Qty: 90 1RF hydrocodone-acetaminophen [Flat Top] 5 MG/325 MG tablet 1 tab PO BID PRNQty: 28 0RF amlodipine 5 mg tablet 5 mg PO BID 0RF colchicine 0.6 mg tablet 1.2 mg PO DAILY 0RF irbesartan 150 mg tablet 150 mg PO DAILY 0RF mometasone [Nasonex] 50 mcg/actuation spray,non-aerosol 2 spray NASAL DAILY 0RF potassium 99 mg tablet 99 mg PO DAILY 0RF Referrals: Ana M Hunt MD [Primary Care Provider] -
[2021-07-22 09:53] LABS: D Dimer 279 ng/mL (<230)
[2021-07-22 09:57] LABS: NT-proBNP (BNP-Adult 18+) 950 pg/mL (<125); Troponin I < 0.012 ng/mL (0.01-0.034)
[2021-07-22 10:00] LABS: CKMB % Relative Index 2.5 % (1.5-5.0); Creatine Kinase MB 4.79 ng/mL (<2.37)
[2021-07-22 10:20] LABS: Magnesium 1.9 mg/dL (1.6-2.3)
[2021-07-22] MEDS: FUROSEMIDE 40 MG/4 ML VIAL IV (12:33)
== END 2021-07-22 14:32 | disposition home or self-care (01) ==
PROVIDERS: Emergency Provider Emergency Medicine; PCP Family Medicine
DX: I50.9 Heart failure, unspecified (principal); R00.8 Other abnormalities of heart beat; I07.1 Rheumatic tricuspid insufficiency
CPT/HCPCS: 36415; 71045; 80053; 81003; 82550; 82553; 83690; 83735; 83880; 84484; 85025; 85379; 93005; 93010; 93306; 96374; 99284; J1940

== ENCOUNTER → 2021-08-16 09:20 | Outpatient (CLI) | payer MEDICARE, SELFPAY ==
--- NOTE | 2021-08-16 | DI.NM.S_ITS ---
PROCEDURE: NM JAYME PERF SPECT REST & STR Rest and exercise myocardial perfusion SPECT with gated imaging and ejection fraction RADIOPHARMACEUTICAL: 12.4 mCi Tc-99m sestamibi IV at rest and 25.5 mCi Tc-99m sestamibi IV at peak exercise. A [id number] was performed. INDICATIONS: Heart failure, unspecified TECHNIQUE: Radiopharmaceutical was injected at peak stress test, and also at rest. SPECT images were obtained. SPECT myocardial perfusion images were displayed in short axis, horizontal long axis, and vertical long axis views. Gated images were reviewed using [employer] software. COMPARISON: None. CARDIAC STRESS: A standard [place] treadmill exercise tolerance test was performed by the patient under the supervision of an attending staff. The patient exercised for 6 minutes and 41 seconds; 7.0 METS; functional aerobic impairment (RAVINDER) is 0%. Hemodynamic data: There is normal blood pressure and heart rate response to exercise stress. Patient achieved 108% of maximum predicted heart rate at peak exercise. Maximum BP 172/98. Symptoms: Patient denied chest pain during exercise. EKG: The rest ECG showed sinus rhythm and PVCs occasionally in a bigeminal pattern. Stress ECG demonstrates sinus tachycardia, PVCs and artifact making ST segment evaluation difficult. At peak exercise, median data suggests 1.5 to [address] segment depressions leads III and aVF. 30 seconds into recovery, there is note of 1.[address] segment depression with T wave inversions lead III. In recovery, PVCs increased in frequency to a bigeminal pattern. FINDINGS: Raw data: There is good myocardial labeling by radiotracer. No significant motion artifacts. Svfi-cu-vowik ratio is 0.28 (normal is less than 0.38 for sestamibi tracer, and less than 0.50 for thallium tracer). Left ventricle function: Gated images demonstrate normal left ventricle wall thickening. No segmental wall motion abnormality. No transient ischemic dilation; TID is 0.93 (normal less than 1.3). The left ventricle resting end-diastolic volume is 110 mL. Left ventricle stress ejection fraction is 75%; normal values are above 45%. Myocardial perfusion: There is normal distribution of activity in the left and right ventricular myocardium. No fixed or reversible perfusion defects. IMPRESSION: 1. No evidence of exercise-induced ischemia or scar on perfusion imaging. 2. Abnormal rest and stress ECG (please see description above). 3. Normal exercise capacity. 4. Normal blood pressure response to exercise. Dictated by: Luz Valle D.O. on 08/16/2021 at 17:14 Approved by: Luz Valle M.D. on 08/16/2021 at 17:27
[2021-08-16 11:40] LABS: COVID19 -Nasal RAPID Negative (Negative)
== END ==
PROVIDERS: PCP Family Medicine; Referring Provider Family Medicine; Visit Provider Family Medicine
DX: I50.9 Heart failure, unspecified (principal); R00.0 Tachycardia, unspecified; R06.82 Tachypnea, not elsewhere classified; Z20.822 Contact with and (suspected) exposure to COVID-19
CPT/HCPCS: 78452; 87635; 93017; A9502

== ENCOUNTER → 2024-12-24 08:59 | Outpatient (CLI) | payer MEDICARE, SELFPAY ==
--- NOTE | 2024-12-24 09:03 | DI.CT.S_ITS ---
PROCEDURE: CT SINUS SCREEN WO CON INDICATIONS: RECURRENT SINUSITIS TECHNIQUE: Noncontrast 3.0 mm axial images acquired from the frontal sinuses to the mid- sella, with coronal and sagittal reformats. For radiation dose reduction, the following was used: automated exposure control, adjustment of mA and/or kV according to patient size. COMPARISON: None. FINDINGS: Image quality: There is artifact associated with the metallic hardware. Artifact from the metallic hardware is reduced by metal reconstruction algorithm. Maxillary Sinuses: No bony remodeling or destruction. Minimal mucosal thickening can be seen involving the inferior maxillary sinuses. Ethmoid Air Cells: No bony remodeling or destruction. Sinuses are clear. Sphenoid Sinuses: No bony remodeling or destruction. Sinuses are clear. Frontal Sinuses: No bony remodeling or destruction. Sinuses are clear. Ostiomeatal Complexes: Ostiomeatal complexes are patent. No Adam cells. Miscellaneous: Visualized intra-orbital contents are normal. No janee bullosa or paradoxical turbinate curvature. There is moderate leftward nasal septal deviation. Scrutiny is given to the teeth. There is periapical lucency seen within the right maxilla, as on series 2, image 11 and on the series 5, image 62. IMPRESSION: No significant active paranasal sinus disease can be seen. Minimal mucosal thickening can be seen within the inferior maxillary sinuses. Constitutionally narrowed ostiomeatal complexes. There is moderate leftward nasal septal deviation. Periapical lucency seen involving the right maxilla, which is attributed to a periapical abscess. Please correlate with known dental history and dental examination findings. Dictated by: Aftab Fitch M.D. on 12/24/2024 at 10:52 Approved by: Aftab Fitch M.D. on 12/24/2024 at 10:55
== END ==
PROVIDERS: PCP Physician Assistant; Referring Provider Physician Assistant; Visit Provider Physician Assistant
DX: J32.0 Chronic maxillary sinusitis (principal); J32.9 Chronic sinusitis, unspecified; J34.2 Deviated nasal septum
CPT/HCPCS: 70486

== ENCOUNTER → 2025-05-01 17:06 | Outpatient (CLI) | payer MEDICARE, SELFPAY ==
--- NOTE | 2025-05-01 17:07 | DI.MRI.S_ITS ---
PROCEDURE: MR SHOULDER RT WO CON INDICATIONS: RT SHOULDER IMPINGMENT TECHNIQUE: Noncontrast oblique coronal T2 fast spin echo with fat saturation, oblique sagittal T1 spin echo and T2 fast spin echo with fat saturation, axial T1 spin echo and T2 fast spin echo with fat saturation through the shoulder. COMPARISON: None. FINDINGS: Quality: Adequate. Tendons: Rotator cuff tendons: Full-thickness full width infraspinatus tendon tear. Full-thickness partial width tear of the posterior supraspinatus tendon. Teres minor tendon is intact. Less than 25% thickness articular sided non insertional tearing of the superior 3rd of the subscapularis tendon. Long head of biceps tendon: Split tearing within the rotator interval and bicipital groove. Muscles: Less than 25% fatty degeneration of infraspinatus muscle. Fluid extending along the muscle fascia of the supraspinatus and infraspinatus. Acromioclavicular joint: Unremarkable. Glenohumeral joint: Labrum: Circumferential degeneration and tearing. Cartilage: No focal defect. Fluid: Moderate effusion Capsule: No pericapsular inflammation or scarring. Alignment: No dislocation. Bursa: Subacromial/subdeltoid bursa: Distended Subcoracoid bursa: Nondistended. Bones: No fracture. IMPRESSION: Full-thickness supraspinatus and infraspinatus tendon tearing. Low-grade partial-thickness subscapularis tendon tear. Split tearing of long head of biceps tendon. Circumferential labral degeneration and tearing. Glenohumeral effusion. Grade 2 muscle tear of infraspinatus. Dictated by: Kristopher Moreno M.D. on 05/01/2025 at 20:28 Approved by: Kristopher Moreno M.D. on 05/01/2025 at 20:34
== END ==
LOC: MRI 17:06
PROVIDERS: PCP Physician Assistant; Referring Provider Orthopaedic Surgery; Visit Provider Orthopaedic Surgery
DX: M75.121 Complete rotator cuff tear or rupture of right shoulder, not specified as traumatic (principal); M75.111 Incomplete rotator cuff tear or rupture of right shoulder, not specified as traumatic; S46.111A Strain of muscle, fascia and tendon of long head of biceps, right arm, initial encounter; M75.81 Other shoulder lesions, right shoulder; M25.411 Effusion, right shoulder; M75.41 Impingement syndrome of right shoulder; M25.511 Pain in right shoulder; M25.512 Pain in left shoulder; G89.29 Other chronic pain; X58.XXXA Exposure to other specified factors, initial encounter
CPT/HCPCS: 73221

== ENCOUNTER → 2025-06-23 15:16 | Outpatient (CLI) | payer MEDICARE, SELFPAY ==
--- NOTE | 2025-06-23 15:18 | DI.MRI.S_ITS ---
PROCEDURE: MR CERVICAL SPINE WO CON INDICATIONS: CERVICALGIA TECHNIQUE: Noncontrast sagittal T1 spin echo and T2 fast spin echo, sagittal STIR, foraminal oblique sagittal T2 fast spin echo, and axial gradient echo or T2 fast spin echo through the cervical spine. COMPARISON: None. FINDINGS: Image quality: Excellent. Alignment and Curvature: Trace retrolisthesis of C3 on C4, C5 on C6, C6 on C7. Bone Marrow: Marrow demonstrates normal overall signal. Spinal Cord: Visualized spinal cord has normal size and signal. No cerebellar tonsillar herniation. Paraspinous Soft Tissues: No paravertebral masses. Prevertebral soft tissues are normal in thickness. Discs: Multilevel disc desiccation most severe at C5-6 and C6-7. C2-C3: No disc bulge, spinal stenosis or foraminal narrowing. C3-C4: Mild disc bulge with moderate spinal stenosis. Moderate to severe bilateral foraminal narrowing with uncovertebral hypertrophy. C4-C5: Mild disc bulge with moderate spinal stenosis. Moderate to severe bilateral foraminal narrowing, right greater than left with uncovertebral hypertrophy. C5-C6: Mild disc bulge with minimal spinal stenosis. Moderate to severe bilateral foraminal narrowing, right greater than left with uncovertebral hypertrophy. C6-C7: Mild disc bulge with effacement of the anterior thecal sac. Moderate to severe bilateral foraminal narrowing, right greater than left with uncovertebral hypertrophy. C7-T1: Minimal disc bulge without spinal stenosis. [id number] bilateral foraminal narrowing with uncovertebral hypertrophy. IMPRESSION: Multilevel disc bulges. Multilevel spinal stenosis most severe C3-4 spina C4-5 secondary to disc bulge. 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 Dictated by: Lore Pathak M.D. on 06/24/2025 at 9:25 Approved by: Lore Pathak M.D. on 06/24/2025 at 9:32
== END ==
LOC: MRI 15:17
PROVIDERS: PCP Physician Assistant; Referring Provider Physician Assistant; Visit Provider Physician Assistant
DX: M47.22 Other spondylosis with radiculopathy, cervical region (principal); M50.11 Cervical disc disorder with radiculopathy, high cervical region; M48.02 Spinal stenosis, cervical region; R20.2 Paresthesia of skin
CPT/HCPCS: 72141